=== PATIENT | female | born 1955 | race Caucasian/White ===

== ENCOUNTER → 2019-05-19 | Outpatient (CLI) | payer MEDICARE, OTHER ==
[2019-05-19 10:06] LABS: ANION GAP 10 (5-19); BLOOD UREA NITROGEN 21 mg/dL (7-20); CALCIUM 9.8 mg/dL (8.4-10.2); CARBON DIOXIDE 26 mmol/L (22-30); CHLORIDE 108 mmol/L (98-107); GLUCOSE 86 mg/dL (75-110); POTASSIUM 4.2 mmol/L (3.6-5.0)
== END ==
LOC: OD 08:30
PROVIDERS: ATTEND Internal Medicine Cardiovascular Disease
DX: I10 Essential (primary) hypertension (principal); I49.49 Other premature depolarization
CPT/HCPCS: 36415; 80048; 83735

== ENCOUNTER 2019-07-28 08:27 | Observation (INO) | payer MEDICARE, OTHER ==
[2019-07-27 10:30] LABS: APPEARANCE,URINE SLIGHTLY-CLOUDY; BILIRUBIN,URINE NEGATIVE (NEGATIVE); COLOR,URINE YELLOW; GLUCOSE, URINE NEGATIVE (NEGATIVE); KETONES,URINE NEGATIVE (NEGATIVE); LEUKOCYTE ESTERASE,URINE NEGATIVE (NEGATIVE); NITRITE,URINE NEGATIVE (NEGATIVE); PROTEIN,URINE NEGATIVE (NEGATIVE); URINE SPECIFIC GRAVITY 1.016; UROBILINOGEN,URINE NEGATIVE mg/dL (<2.0)
[2019-07-27 10:39] LABS: HEMATOCRIT 44.9 % (36.0-47.0); HEMOGLOBIN 15.4 g/dL (12.0-15.5); MEAN CORPUSCULAR HEMOGLOBIN 31.3 pg (27.0-33.4); MEAN CORPUSCULAR HGB CONC 34.2 g/dL (32.0-36.0); MEAN CORPUSCULAR VOLUME 91 fl (80-97); PLATELET COUNT 217 10^3/uL (150-450); RED BLOOD COUNT 4.91 10^6/uL (3.72-5.28); RED CELL DISTRIBUTION WIDTH 13.7 % (11.5-14.0); WHITE BLOOD COUNT 9.6 10^3/uL (4.0-10.5)
[2019-07-27 11:09] LABS: ALBUMIN 4.5 g/dL (3.5-5.0); ALKALINE PHOSPHATASE 82 U/L (38-126); ANION GAP 12 (5-19); ASPARTATE AMINO TRANSFERASE 27 U/L (14-36); BILIRUBIN,DIRECT 0.2 mg/dL (0.0-0.4); BILIRUBIN,TOTAL 0.6 mg/dL (0.2-1.3); BLOOD UREA NITROGEN 21 mg/dL (7-20); CARBON DIOXIDE 28 mmol/L (22-30); CHLORIDE 101 mmol/L (98-107); GLUCOSE 68 mg/dL (75-110); TOTAL PROTEIN 7.6 g/dL (6.3-8.2)
--- NOTE | 2019-07-27 14:59 | RADIOLOGY REPORT (SQ) ---
EXAM DESCRIPTION: CHEST PA/LATERAL COMPLETED DATE/TIME: 07/27/2019 10:12 am REASON FOR STUDY: PRE-OP COMPARISON: 11/22/2012. EXAM PARAMETERS: NUMBER OF VIEWS: two views TECHNIQUE: Digital Frontal and Lateral radiographic views of the chest acquired. RADIATION DOSE: NA LIMITATIONS: none FINDINGS: LUNGS AND PLEURA: No opacities, masses or pneumothorax. No pleural effusion. MEDIASTINUM AND HILAR STRUCTURES: No masses or contour abnormalities. HEART AND VASCULAR STRUCTURES: Heart normal size. No evidence for failure. BONES: No acute findings. HARDWARE: None in the chest. OTHER: No other significant finding. IMPRESSION: NO SIGNIFICANT RADIOGRAPHIC FINDING IN THE CHEST. TECHNICAL DOCUMENTATION: JOB ID: [id number] [employer]- All Rights Reserved Reading location - IP/workstation name: [email or web address]
[~2019-07-28 08:27] MED LIST: CEFAZOLIN 1 GM/D5W RTU 1 GM/50 ML RTUPB IV PRN; GLYCOPYRROLATE 1 MG/5 ML VIAL ONE; LACTATED RINGERS 1000 ML IV PRN; LIDOCAINE 0.5% INJ-PF (5 MG/ML) 50 ML SDV SUBCUT PRN
[2019-07-28] MEDS ORDERED: METHYLENE BLUE 50 MG/10 ML AMPULE ONE (10:01)
[2019-07-28] MEDS ORDERED: LIDOCAINE 1%/EPINEPHRINE INJ 20 ML VIAL ONE (10:01)
[2019-07-28] MEDS ORDERED: CEFAZOLIN INJ 1 GM VIAL ONE (10:12)
[2019-07-28] MEDS ORDERED: FENTANYL CITRATE INJ/PF 100 MCG/2 ML AMPUL ONE (10:14)
[2019-07-28] MEDS ORDERED: HYDROMORPHONE HCL INJ/PF 2 MG/ML AMPULE ONE (10:14)
[2019-07-28] MEDS ORDERED: PROPOFOL INJ 200 MG/20 ML VIAL IV ONE (10:15)
[2019-07-28] MEDS ORDERED: MIDAZOLAM 2 MG/2 ML INJ ONE (10:16)
[2019-07-28] MEDS ORDERED: EPHEDRINE SULFATE INJ 50 MG/1 ML AMPULE ONE (10:57)
[2019-07-28] MEDS ORDERED: FLUMAZENIL INJ 0.5 MG/5 ML VIAL ONE (10:57)
[2019-07-28] MEDS ORDERED: MAG HYDROX/AL HYDROX/SIMETH SUSP 30 ML UDCUP PO PRN (14:28)
[2019-07-28] MEDS ORDERED: MAGNESIUM HYDROXIDE SUSP 30 ML UDCUP PO PRN (14:28)
[2019-07-28] MEDS ORDERED: TEMAZEPAM 7.5 MG CAPSULE PO PRN (14:28)
[2019-07-28] MEDS ORDERED: ACETAMINOPHEN 325 MG TABLET PO PRN (14:28)
[2019-07-28] MEDS ORDERED: ONDANSETRON HCL INJ/PF 4 MG/2 ML SDV IV PRN (14:28)
[2019-07-28] MEDS ORDERED: NITROGLYCERIN 0.4 MG/TAB 25 TAB/BOTTLE SL PRN (14:36)
--- NOTE | 2019-07-28 15:04 | PDOC H&P ---
History of Present Illness Patient complains of: Arrhythmia History of Present Illness: HUBER GARNER is a 64 year old female with a history of bicuspid aortic valve, thoracic aortic aneurysm, hypertension, arrhythmia, glaucoma and tobacco dependence. She was in daycare surgery and mental anesthesia was being admi nistered she began to have irregular heartbeats. They were mostly bigeminy. It was varied. Anesthesia reversed the medications. Anesthesia discussed the case with Dr. Leobardo Cain who is on-call for in-house cardiology. He requested that the patient be admitted for observation status. I was contacted by Dr. Canales to perform the direct admission. Past Medical History Cardiac Medical History: Reports: Hypertension, Heart Murmur, Other - Bicuspid aortic valve, ventricular arrhythmias Denies: Coronary Artery Disease, Myocardial Infarction Pulmonary Medical History: Denies: Asthma, Bronchitis, Chronic Obstructive Pulmonary Disease (COPD), Pneumonia EENT Medical History: Reports: Cataracts, Other - Detached retina Neurological Medical History: Denies: Ischemic CVA, Seizures Endocrine Medical History: Denies: Diabetes Mellitus Type 2 Renal/ Medical History: Denies: Chronic Kidney Disease Malignancy Medical History: Reports: None GI Medical History: Denies: Cirrhosis, Hepatitis, Hiatal Hernia, Peptic Ulcer Disease Musculoskeltal Medical History: Reports: Arthritis - OLIVER HANDS BACK Skin Medical History: Reports: None Psychiatric Medical History: Reports: Tobacco Dependency Denies: Alcohol Dependency, Depression, Substance Abuse Traumatic Medical History: Reports: None Hematology: Denies: Anemia Infectious Medical History: Reports: None Past Surgical History Past Surgical History: Reports: Appendectomy, Cardiac Catheterization - 6 YRS AGO, Tonsillectomy Social History Information Source: Patient Lives with: Alone - Patient is Smoking Status: Current Every Day Smoker Electronic Cigarette use?: No Frequency of Alcohol Use: Rare Hx Recreational Drug Use: No Hx Prescription Drug Abuse: No - Advance Directive Resuscitation Status: Full Code Surrogate healthcare decision maker:: No living will on record Family History Family History: CAD, COPD, CVA Parental Family History Reviewed: Yes Children Family History Reviewed: Yes Sibling(s) Family History Reviewed.: Yes Medication/Allergy Home Medications: Ascorbic Acid [Vitamin C 500 mg Tablet] 500 mg PO DAILY 11/22/12 Aspirin 1 tab PO DAILY 11/22/12 Hydrochlorothiazide 1 tab PO DAILY 11/22/12 Metoprolol Tartrate [Lopressor 25 mg Tablet] 1 tab PO BID 11/22/12 Multivitamin [Multi-Vitamin Daily] 1 tab PO DAILY 11/22/12 Timolol [Betimol] 1 drop OP ASDIR 11/22/12 Latanoprost/Pf [Latanoprost 0.005% Eye Drop] 1 drop BTH_EYE DAILY 07/28/19 Losartan Potassium 1 tab PO DAILY 07/28/19 Magnesium Oxide 1 tab PO DAILY 07/28/19 Nifedipine [Procardia Xl] 30 mg PO DAILY 07/28/19 Nitroglycerin [Nitrostat 0.4 mg (1/150 Gr) Tabs 25/Bottle] 1 tab SL Q5MP PRN 07/28/19 Potassium Chloride [K-Tab ER] 1 tab PO DAILY 07/28/19 Allergies/Adverse Reactions: No Known Drug Allergies Allergy (Verified 11/22/12 12:05) Review of Systems All systems: reviewed and no additional remarkable complaints except as stated Cardiovascular: PRESENT: palpitations Physical Exam Vital Signs: Temp Pulse Resp BP Pulse Ox 98.5 F 52 L 11 L 147/73 H 99 07/28/19 14:15 07/28/19 14:15 07/28/19 14:15 07/28/19 14:15 07/28/19 14:15 Intake & Output 07/27/19 07/28/19 07/29/19 06:59 06:59 06:59 Weight 63.5 kg General appearance: PRESENT: no acute distress - Well-developed 64-year-old female resting comfortably in the rrodessa. The effects of the anesthesia are still wearing off., cooperative, well-developed, well-nourished Head exam: PRESENT: atraumatic, normocephalic Eye exam: PRESENT: conjunctiva pink. ABSENT: scleral icterus Ear exam: PRESENT: normal external ear exam. ABSENT: bleeding, drainage Mouth exam: PRESENT: dry mucosa, tongue midline Teeth exam: ABSENT: poor dentation Respiratory exam: PRESENT: clear to auscultation oliver, symmetrical, unlabored. ABSENT: accessory muscle use, rales, rhonchi, tachypnea, wheezes Cardiovascular exam: PRESENT: bradycardia, irregular rhythm - Regularly i rregular rhythm (bigeminy on the monitor), +S1, +S2, systolic murmur - S1-S2 and 2/6 systolic murmur intermittently heard Pulses: PRESENT: normal radial pulses, normal dorsalis pedis pul GI/Abdominal exam: PRESENT: normal bowel sounds, soft. ABSENT: distended, guarding, organolmegaly, tenderness Rectal exam: PRESENT: deferred Extremities exam: ABSENT: joint swelling, pedal edema Musculoskeletal exam: PRESENT: normal inspection. ABSENT: deformity Neurological exam: PRESENT: alert, awake, oriented to person, oriented to place, oriented to time, oriented to situation, CN II-XII grossly intact Psychiatric exam: PRESENT: appropriate affect. ABSENT: agitated, anxious Focused psych exam: ABSENT: delusional, restlessness Skin exam: PRESENT: dry, normal color, warm. ABSENT: rash Results Laboratory Results: 07/27/19 10:00 07/28/19 09:20 07/28/19 09:20 Potassium 3.6 Impressions: Chest X-Ray 07/27/19 10:06 IMPRESSION: NO SIGNIFICANT RADIOGRAPHIC FINDING IN THE CHEST. Assessment and Plan - Diagnosis (1) Ventricular bigeminy Is this a current diagnosis for this admission?: Yes Plan: Upon first arrival the patient was in bigeminy both by auscultation and monitoring tech. During the course of this encounter the patient has converted to sinus rhythm but with bradycardia. I will continue her metoprolol and nifedipine with parameters to hold for bradycardia. She will remain on continuous telemetry. The patient will be seen by Dr. Leobardo Cain. (2) Ventricular bigeminy seen on monitoring tech Is this a current diagnosis for this admission?: Yes Plan: Continue telemetry monitoring (3) Hypertension Qualifiers: Hypertension type: essential hypertension Qualified Code(s): I10 - Essential (primary) hypertension Is this a current diagnosis for this admission?: Yes Plan: Continue her losartan as well as metoprolol and nifedipine. Parameters to hold for hypotension and bradycardia. (4) Hypokalemia Is this a current diagnosis for this admission?: Yes Plan: Potassium is slightly low this morning. The patient likely did not get her potassium chloride this morning. I am rechecking the blood work now and if it is still low I will give her a dose of her potassium today and resume daily dosing tomorrow. (5) Bicuspid aortic valve Is this a current diagnosis for this admission?: Yes Plan: Audible murmur. Bicuspid valve actually runs in her family. We will continue current medications including aspirin therapy. (6) Tobacco dependency Is this a current diagnosis for this admission?: Yes Plan: Patient is actively trying to quit. She is down to approximately one third of a pack of cigarettes daily. She declined a nicotine patch. (7) Glaucoma Qualifiers: Glaucoma type: unspecified Laterality: bilateral Qualified Code(s): H40.9 - Unspecified glaucoma Is this a current diagnosis for this admission?: Yes Plan: We will continue the patient's atenolol and latanoprost drops. - Time Time Spent with patient: 35 or more minutes Smoking Cessation Education: 3 to 10 minutes Medications reviewed and adjusted accordingly: Yes Anticipated discharge: Home Within: within 24 hours
[2019-07-28 15:53] LABS: ANION GAP 6 (5-19); BLOOD UREA NITROGEN 17 mg/dL (7-20); CALCIUM 9.4 mg/dL (8.4-10.2); CARBON DIOXIDE 28 mmol/L (22-30); CHLORIDE 105 mmol/L (98-107); GLUCOSE 95 mg/dL (75-110)
[2019-07-28] MEDS: NORMAL SALINE 1000 ML 1,000 ML IV PRN (16:42)
[2019-07-28] MEDS ORDERED: HYDRALAZINE HCL INJ/PF 20 MG/1 ML SDV IV PRN (18:16)
--- NOTE | 2019-07-28 18:45 | Progress Note ---
Provider Note Provider Note: I was contacted on the telephone by anesthesiologist regarding the patient developing heart block at the time of anesthesia induction prior to planned surgery. The surgery was aborted and the patient was returned to the PACU. In the PACU patient's telemetry showed sinus rhythm with premature ventricular contractions. There was also report of a bigeminal rhythm. The patient I was informed was without symptoms. I agreed with the surgery being aborted. In my discussion with the anesthesiologist it appeared that it such a degree of heart block occurred it is very likely due to vagal effects and hemodynamic stresses associated with anesthesia induction prior to surgery. 24-hour. Of observation on telemetry would be reasonable in such a case. There would not be an urgent indication for pacing unless heart block persisted. I agree to evaluate the patient later. I was later on notified that the patient is followed by another local grain oilseed or pasture grower who has been contacted by Dr. Naranjo. Given this above circumstance I will defer care to the primary team and to the patient's grain oilseed or pasture grower.
--- NOTE | 2019-07-28 21:55 | EKG REPORT ---
SEVERITY:- ABNORMAL ECG - SINUS RHYTHM VENTRICULAR BIGEMINY BORDERLINE T ABNORMALITIES, ANTERIOR LEADS : Confirmed by: Fredo Powell 28-Jul-2019 21:55:19
[2019-07-28] MEDS ORDERED: METOPROLOL TARTRATE 50 MG TABLET PO SCH (22:00)
[2019-07-28] MEDS ORDERED: LATANOPROST 0.005% OPH SOLN 2.5 ML OU SCH (22:00)
[2019-07-28] MEDS: HEPARIN SOD (PORCINE) 5,000 UNIT/ML 1 ML VIAL SUBCUT SCH (23:51)
[2019-07-28] MEDS: METOPROLOL TARTRATE 50 MG TABLET PO SCH (23:51)
[2019-07-28] MEDS: FAMOTIDINE 20 MG TABLET PO SCH (23:52)
[2019-07-29] MEDS: TIMOLOL MALEATE 0.5% OPH SOLN 5 ML OU SCH ×2 (00:06→12:36)
[2019-07-29] MEDS ORDERED: NIFEDIPINE 30 MG TAB.ER.24 PO ONE (00:30)
[2019-07-29 05:31] LABS: ANION GAP 9 (5-19); BLOOD UREA NITROGEN 18 mg/dL (7-20); CALCIUM 9.5 mg/dL (8.4-10.2); CARBON DIOXIDE 28 mmol/L (22-30); CHLORIDE 105 mmol/L (98-107); GLUCOSE 84 mg/dL (75-110); POTASSIUM 3.9 mmol/L (3.6-5.0)
--- NOTE | 2019-07-29 06:13 | ADVANCED CARE ---
- Diagnosis (1) Ventricular bigeminy Diagnosis Current: Yes (2) Ventricular bigeminy seen on customer experience associate Diagnosis Current: Yes (3) Hypertension Diagnosis Current: Yes (4) Hypokalemia Diagnosis Current: Yes (5) Bicuspid aortic valve Diagnosis Current: Yes (6) Tobacco dependency Diagnosis Current: Yes (7) Glaucoma Diagnosis Current: Yes Attendance: Discussion was held at the bedside with the patient Resuscitation Status: Full Code Discussion: The patient has a history of ongoing cardiac disease with bicuspid aortic valve and just experienced bigeminy with bradycardia and possible heart block during the induction of anesthesia. Our discussion revolved mostly around the current incident as well as her complex cardiac history including multiple relatives with congenital valve disorders and coronary artery disease. We discussed the decision making tree regarding resuscitation status and the patient's wishes. As is common with many patients, she would want initial resuscitative efforts but not prolonged treatment if after the catastrophic event she was successfully resuscitated but had no meaningful recovery. I explained that there will be admissions packet with a living will and that she can assign decision-making authority. Because she is her children would be the primary decision makers. She can further specify if she wishes. I explained that the next portion would be where she can specify specific post resuscitation directions such as length of time for aggressive efforts without meaningful recovery and then making a change to comfort measures. She could specify her wishes regarding tracheostomy, PEG tube and long-term fpc placement. Care Planning Goals: Formulation of treatment plan in the event of a catastrophic illness with survival of resuscitation but no hope for meaningful recovery. Document(s) Completed: None Time Spent: 18 minutes
[2019-07-29] MEDS: NORMAL SALINE 1000 ML 1,000 ML IV PRN (06:38)
[2019-07-29] MEDS: HEPARIN SOD (PORCINE) 5,000 UNIT/ML 1 ML VIAL SUBCUT SCH ×2 (06:39→14:13)
[2019-07-29] MEDS: METOPROLOL TARTRATE 50 MG TABLET PO SCH (09:37)
[2019-07-29] MEDS: FAMOTIDINE 20 MG TABLET PO SCH (09:38)
[2019-07-29] MEDS ORDERED: NIFEDIPINE 30 MG TAB.ER.24 PO SCH ×2 (10:00→22:00)
[2019-07-29] MEDS ORDERED: POTASSIUM CHLORIDE 10 MEQ TABLET.ER PO SCH (10:00)
[2019-07-29] MEDS ORDERED: LOSARTAN POTASSIUM 50 MG TABLET PO SCH (10:00)
[2019-07-29] MEDS ORDERED: ASPIRIN 81 MG TABLET, ENT COATED PO SCH (10:00)
[2019-07-29] MEDS ORDERED: MAGNESIUM OXIDE 400 MG TABLET PO SCH (10:00)
--- NOTE | 2019-07-29 13:46 | PDOC DISCHARGE SUMMARY ---
Impression - Admit/DC Date/PCP Admission Date/Primary Care Provider: 07/28/19 14:53 Discharge Date: 07/29/19 - Discharge Diagnosis (1) Ventricular bigeminy Is this a current diagnosis for this admission?: Yes (2) Ventricular bigeminy seen on customer marketing assistant Is this a current diagnosis for this admission?: Yes (3) Hypertension Is this a current diagnosis for this admission?: Yes (4) Hypokalemia Is this a current diagnosis for this admission?: Yes (5) Bicuspid aortic valve Is this a current diagnosis for this admission?: Yes (6) Tobacco dependency Is this a current diagnosis for this admission?: Yes (7) Glaucoma Is this a current diagnosis for this admission?: Yes - Assessment Summary: This pleasant 64-year-old female presented for elective surgery with Dr. Canales. Because of her cardiac history she had an extensive evaluation by her legal editor prior to surgery. Anesthesia spoke with the legal editor as well. During induction of anesthesia the patient exhibited ventricular arrhythmias and reported heart block. Anesthesia was reversed and the patient was returned to the recovery room. The hospital service was asked to admit the patient for monitoring overnight. The patient continued to exhibit bigeminy with spontaneous change to normal sinus rhythm and reverting to bigeminy again. She never experienced any chest pain. There was no tachyarrhythmia. She was bradycardic for the most part. She is going to discharge home. Reevaluation for surgery will be undertaken. The patient is going to get a second opinion from an model photographers'. She may likely elect to have surgery at a tertiary care facility versus attempting the surgery locally. This will be based on input from multiple providers. - Additional Information Resuscitation Status: Full Code Referrals: MELANI KIMBROUGH MD [ACTIVE STAFF] - 08/02/19 9:30 am (LEFT MESSAGE AT OFFICE FOR APPOINTMENT ON THURSDAY, THE OFFICE SHOULD BE CALLING YOU BACK WITH AN APPOINTMENT TIME. ) Home Medications: Ascorbic Acid [Vitamin C 500 mg Tablet] 500 mg PO DAILY 11/22/12 Aspirin 1 tab PO DAILY 11/22/12 Hydrochlorothiazide 1 tab PO DAILY 11/22/12 Metoprolol Tartrate [Lopressor 25 mg Tablet] 1 tab PO BID 11/22/12 Multivitamin [Multi-Vitamin Daily] 1 tab PO DAILY 11/22/12 Timolol [Betimol] 1 drop OP ASDIR 11/22/12 Latanoprost/Pf [Latanoprost 0.005% Eye Drop] 1 drop BTH_EYE DAILY 07/28/19 Losartan Potassium 1 tab PO DAILY 07/28/19 Magnesium Oxide 1 tab PO DAILY 07/28/19 Nitroglycerin [Nitrostat 0.4 mg (1/150 Gr) Tabs 25/Bottle] 1 tab SL Q5MP PRN 07/28/19 Potassium Chloride [K-Tab ER] 1 tab PO DAILY 07/28/19 Aspirin [Ecotrin 81 mg EC Tablet] 81 mg PO DAILY tabec 07/29/19 Latanoprost [Xalatan 0.005% Oph Soln 2.5 ml] 1 drop OU QHS bottle 07/29/19 Losartan Potassium [Cozaar 50 mg Tablet] 100 mg PO DAILY tablet 07/29/19 Nitroglycerin [Nitrostat 0.4 mg (1/150 Gr) Tabs 25/Bottle] 1 tab SL Q5MP PRN bottle 07/29/19 Potassium Chloride [Klor-Con 10 Meq Tablet ER] 20 meq PO DAILY tablet.er 07/29/19 Timolol Maleate [Timoptic 0.5% Oph Soln 5 ml] 1 drop OU Q12 bottle 07/29/19 History of Present Illiness History of Present Illness: HUBER GARNER is a 64 year old female with a history of bicuspid aortic valve, thoracic aortic aneurysm, hypertension, arrhythmia, glaucoma and tobacco dependence. She was in daycare surgery and mental anesthesia was being administered she began to have irregular heartbeats. They were mostly bigeminy. It was varied. Anesthesia reversed the medications. Anesthesia discussed the case with Dr. Melani Kimbrough who is on-call for in-house cardiology. He requested that the patient be admitted for observation status. I was contacted by Dr. Canales to perform the direct admission. Hospital Course Hospital Course: Unremarkable Parameters were placed on the patient's metoprolol. Nifedipine was discontinued. She was asymptomatic through the night and as noted above her rhythm would spontaneously change from bigeminy to sinus and back. Physical Exam Vital Signs: Temp Pulse Resp BP Pulse Ox 97.9 F 36 L 17 120/87 H 99 07/29/19 08:05 07/29/19 08:05 07/29/19 08:05 07/29/19 08:05 07/29/19 08:05 Intake & Output 07/28/19 07/29/19 07/30/19 06:59 06:59 06:59 Intake Total 1462 Balance 1462 Weight 67 kg General appearance: PRESENT: no acute distress, cooperative, well-developed, well-nourished. ABSENT: disheveled Head exam: PRESENT: atraumatic, normocephalic Respiratory exam: PRESENT: clear to auscultation vignesh, symmetrical. ABSENT: rales, rhonchi, tachypnea, wheezes Cardiovascular exam: PRESENT: other - Regularly irregular rhythm with bradycardia GI/Abdominal exam: PRESENT: soft. ABSENT: distended, tenderness Extremities exam: ABSENT: joint swelling, pedal edema Musculoskeletal exam: PRESENT: ambulatory, normal inspection Neurological exam: PRESENT: alert, awake, oriented to person, oriented to place, oriented to time, oriented to situation, CN II-XII grossly intact Psychiatric exam: PRESENT: appropriate affect. ABSENT: agitated, anxious Focused psych exam: ABSENT: delusional, restlessness Skin exam: PRESENT: dry, normal color, warm. ABSENT: rash Results Laboratory Results: WBC 9.6 10^3/uL (4.0-10.5) 07/27/19 10:00 RBC 4.91 10^6/uL (3.72-5.28) 07/27/19 10:00 Hgb 15.4 g/dL (12.0-15.5) 07/27/19 10:00 Hct 44.9 % (36.0-47.0) 07/27/19 10:00 MCV 91 fl (80-97) 07/27/19 10:00 MCH 31.3 pg (27.0-33.4) 07/27/19 10:00 MCHC 34.2 g/dL (32.0-36.0) 07/27/19 10:00 RDW 13.7 % (11.5-14.0) 07/27/19 10:00 Plt Count 217 10^3/uL (150-450) 07/27/19 10:00 Sodium 141.5 mmol/L (137-145) 07/29/19 04:21 Potassium 3.9 mmol/L (3.6-5.0) 07/29/19 04:21 Chloride 105 mmol/L (98-107) 07/29/19 04:21 Carbon Dioxide 28 mmol/L (22-30) 07/29/19 04:21 Anion Gap 9 (5-19) 07/29/19 04:21 BUN 18 mg/dL (7-20) 07/29/19 04:21 Creatinine 1.01 mg/dL (0.52-1.25) 07/29/19 04:21 Est GFR ( Amer) > 60 (>60) 07/29/19 04:21 Est GFR (MDRD) Non-Af 55 (>60) L 07/29/19 04:21 Glucose 84 mg/dL (75-110) 07/29/19 04:21 Calcium 9.5 mg/dL (8.4-10.2) 07/29/19 04:21 Magnesium 1.8 mg/dL (1.6-2.3) 07/29/19 04:21 Total Bilirubin 0.6 mg/dL (0.2-1.3) 07/27/19 10:00 Direct Bilirubin 0.2 mg/dL (0.0-0.4) 07/27/19 10:00 Neonat Total Bilirubin Not Reportable 07/27/19 10:00 Neonat Direct Bilirubin Not Reportable 07/27/19 10:00 Neonat Indirect Bili Not Reportable 07/27/19 10:00 AST 27 U/L (14-36) 07/27/19 10:00 ALT 15 U/L (<35) 07/27/19 10:00 Alkaline Phosphatase 82 U/L (38-126) 07/27/19 10:00 Total Protein 7.6 g/dL (6.3-8.2) 07/27/19 10:00 Albumin 4.5 g/dL (3.5-5.0) 07/27/19 10:00 Urine Color YELLOW 07/27/19 09:50 Urine Appearance SLIGHTLY-CLOUDY 07/27/19 09:50 Urine pH 6.0 (5.0-9.0) 07/27/19 09:50 Ur Specific [place] 1.016 07/27/19 09:50 Urine Protein NEGATIVE mg/dL (NEGATIVE) 07/27/19 09:50 Urine Glucose (UA) NEGATIVE mg/dL (NEGATIVE) 07/27/19 09:50 Urine Ketones NEGATIVE mg/dL (NEGATIVE) 07/27/19 09:50 Urine Blood NEGATIVE (NEGATIVE) 07/27/19 09:50 Urine Nitrite NEGATIVE (NEGATIVE) 07/27/19 09:50 Urine Bilirubin NEGATIVE (NEGATIVE) 07/27/19 09:50 Urine Urobilinogen NEGATIVE mg/dL (<2.0) 07/27/19 09:50 Ur Leukocyte Esterase NEGATIVE (NEGATIVE) 07/27/19 09:50 Urine WBC (Auto) 1 /HPF 07/27/19 09:50 Urine RBC (Auto) 5 /HPF 07/27/19 09:50 Urine Bacteria (Auto) 3+ /HPF 07/27/19 09:50 Squamous Epi Cells Auto 3 /HPF 07/27/19 09:50 Urine Mucus (Auto) RARE /LPF 07/27/19 09:50 Urine Ascorbic Acid NEGATIVE (NEGATIVE) 07/27/19 09:50 Blood Type O POSITIVE 07/27/19 10:00 Antibody Screen NEGATIVE 07/27/19 10:00 Impressions: Chest X-Ray 07/27/19 10:06 IMPRESSION: NO SIGNIFICANT RADIOGRAPHIC FINDING IN THE CHEST. Plan Health Concerns: Ongoing assessment and treatment of her cardiac issues Plan of Treatment: The patient is going to get a second opinion to reassess risk regarding her surgery. She has a ring pessary is in place and so there is no urgent need for surgery. Goals: Stabilization of cardiac status for surgery Time Spent: Greater than 30 Minutes Stroke Is this a Stroke Patient?: No Acute Heart Failure - Is this a Heart Failure Patient?: No
[2019-07-29 13:50] VITALS: BP 121/60
--- NOTE | 2019-07-29 20:55 | EKG REPORT ---
SEVERITY:- ABNORMAL ECG - SINUS RHYTHM VENTRICULAR BIGEMINY ABNORMAL T, CONSIDER ISCHEMIA, DIFFUSE LEADS SHORT QT INTERVAL : Confirmed by: Fredo Powell 29-Jul-2019 20:54:35
== END 2019-07-29 14:50 | disposition home or self-care (01) ==
LOC: OROUT 08:27 → 4S 14:53
PROVIDERS: ADMIT Hospitalist; ATTEND Hospitalist
DX: N81.4 Uterovaginal prolapse, unspecified (principal); I49.8 Other specified cardiac arrhythmias; I44.2 Atrioventricular block, complete; T41.1X5A Adverse effect of intravenous anesthetics, initial encounter; Y92.530 Ambulatory surgery center as the place of occurrence of the external cause; I10 Essential (primary) hypertension; E87.6 Hypokalemia; Q23.1 Congenital insufficiency of aortic valve; F17.210 Nicotine dependence, cigarettes, uncomplicated; H40.89 Other specified glaucoma; Z79.82 Long term (current) use of aspirin; Z79.899 Other long term (current) drug therapy; Z90.49 Acquired absence of other specified parts of digestive tract; Z53.09 Procedure and treatment not carried out because of other contraindication; Z82.49 Family history of ischemic heart disease and other diseases of the circulatory system; Z96.0 Presence of urogenital implants; Z60.2 Problems related to living alone
CPT/HCPCS: 86900; 86901; 36415 ×3; 86850; 83735 ×2; 84132; 85027; 80048 ×2; 80053; 81001; 71046; 93005 ×2; 93010 ×2; 00944; 99406; G0378 ×2; J3490 ×3; J2250; J1644 ×2; J0690; A9270 ×10; J3010; J7030 ×2; J2704; 944; J1170; Q9968